=== PATIENT | female | born 1995 | race Caucasian/White ===

== ENCOUNTER 2022-06-10 13:40 | Outpatient (CLI) | payer BC, SELFPAY ==
[2022-06-10 15:53] LABS: Cholesterol* 203 mg/dL (90-199); HDL Cholesterol* 36 mg/dL (>=50); LDL Cholesterol Calculated 138 mg/dL (<100); Triglycerides* 147 mg/dL (40-149)
== END 2022-06-10 13:41 | disposition home or self-care (01) ==
PROVIDERS: Visit Provider Obstetrics & Gynecology
DX: Z01.419 Encounter for gynecological examination (general) (routine) without abnormal findings (principal); Z13.6 Encounter for screening for cardiovascular disorders
CPT/HCPCS: 80061